=== PATIENT | male | born 1985 | race African-American/Black ===

== ENCOUNTER 2017-05-02 08:01 | Emergency (ER) | payer OTHER ==
[2017-05-02 08:07] VITALS: BP 115/84; PULSE 77; TEMP 98.5; BMI 20.3
--- NOTE | 2017-05-02 08:34 | PDOC ---
History of Present Illness - General Chief Complaint: Rash Stated Complaint: ALLERGIC REACTION Time Seen by Provider: 05/02/17 08:20 History Source: Patient Exam Limitations: No Limitations - History of Present Illness Initial Comments: 05/02/17 08:56 32 yr male with c/o rash to right index finger and thumb and left thumb for 2-3 weeks. Pt denies trauma. Pt states he uses dice alot during gambling games. Pt has no medical history, no history of eczema or psoriasis. no fever. Pt states the area is slightly itchy no pain . Severity: Yes: mild Location: reports: hands Respiratory Risk Factors: reports: no cause identified Past History - Past Medical History Allergies/Adverse Reactions: Allergies Allergy/AdvReac Type Severity Reaction Status Date / Time No Known Allergies Allergy Verified 05/02/17 08:04 Home Medications: Ambulatory Orders Hydrocortisone 1% Cream [Hytone 1% Cream -] 1 applic TP TID #1 tube 05/02/17 Other medical history: none - Psycho/Social/Smoking Cessation Hx Anxiety: No Suicidal Ideation: No Smoking History: Current some day smoker Have you smoked in the past 12 months: Yes Number of Cigarettes Smoked Daily: 5 Information on smoking cessation initiated: Yes 'Breaking Loose' booklet given: 05/02/17 Hx Alcohol Use: No Drug/Substance Use Hx: No Substance Use Type: Alcohol Review of Systems - Review of Systems Able to Perform ROS?: Yes Is the patient limited German proficient: No Constitutional: No: Symptoms Reported HEENTM: No: Symptoms Reported Respiratory: No: Symptoms reported Cardiac (ROS): No: Symptoms Reported ABD/GI: No: Symptoms Reported : No: Symptoms Reported Musculoskeletal: No: Symptoms Reported Integumentary: Yes: Symptoms Reported, See HPI *Physical Exam - Vital Signs Last Vital Signs Temp Pulse Resp BP Pulse Ox 98.5 F 77 18 115/84 100 05/02/17 08:05 05/02/17 08:05 05/02/17 08:05 05/02/17 08:05 05/02/17 08:05 - Physical Exam General Appearance: Yes: Nourished, Appropriately Dressed HEENT: positive: EOMI, IKE Neck: negative: Tender Respiratory/Chest: positive: Lungs Clear, Normal Breath Sounds Cardiovascular: positive: Regular Rhythm, Regular Rate Musculoskeletal: positive: Normal Inspection Extremity: positive: Normal Capillary Refill, Normal Inspection, Normal Range of Motion Integumentary: positive: Rash (right thumb, index finger with scaly, peeling rash no redness or drainage, mild pustules to the fingers and left hand mild pustules to the fingers, scaly dry , no swelling) Neurologic: positive: Fully Oriented, Alert, Normal Mood/Affect, Normal Response , Motor Strength 5/5 *DC/Admit/Observation/Transfer Diagnosis at time of Disposition: Contact dermatitis Qualifiers: Contact dermatitis type: irritant Contact dermatitis trigger: unspecified trigger Qualified Code(s): L24.9 - Irritant contact dermatitis, unspecified cause - Discharge Dispostion Disposition: HOME Condition at time of disposition: Good - Prescriptions Prescriptions: Hydrocortisone 1% Cream [Hytone 1% Cream -] 1 applic TP TID #1 tube - Referrals Referrals: Josh Song MD [Primary Care Provider] - Naty Yang MD [Staff Physician] - - Patient Instructions Additional Instructions: wash hands in cool water only not hot apply the prescription ointment as directed to the affected areas follow with the salvager if symptoms worsen or do not improve
== END 2017-05-02 08:38 | disposition home or self-care (01) ==
LOC: JERFT 08:01
DX: L24.9 Irritant contact dermatitis, unspecified cause (principal)
CPT/HCPCS: 99281-25

== ENCOUNTER 2017-05-13 05:17 | Emergency (ER) | payer OTHER ==
[2017-05-13] MEDS ORDERED: NALOXONE HCL 0.4 MG/ML VIAL IM ONE (05:22)
[2017-05-13] MEDS ORDERED: NALOXONE HCL 0.4 MG/ML VIAL ONE ×2 (05:28→06:07)
[2017-05-13 05:46] LABS: BASOPHIL 0.7 % (0-2.0); EOSINOPHIL 1.9 % (0-4.5); MCH 32.3 pg (25.7-33.7); MCHC 34.4 g/dl (32.0-35.9); MEAN CELL VOLUME 94.1 fl (80-96); MEAN PLT VOLUME 7.8 fl (7.5-11.1); NEUTROPHILS 74.5 % (42.8-82.8); PLATELET COUNT 244 K/MM3 (134-434); RDW 13.7 % (11.9-15.9); WHITE BLOOD COUNT 10.5 K/mm3 (4.0-10.0)
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
[2017-05-13] MEDS ORDERED: NALOXONE HCL 0.4 MG/ML VIAL IVPUSH ONE (06:06)
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
[2017-05-13 06:15] LABS: ALBUMIN 4.1 g/dl (3.4-5.0); ANION GAP 13 (8-16); BILIRUBIN,TOTAL 0.3 mg/dL (0.2-1.0); CALCIUM 8.7 mg/dL (8.5-10.1); CO2 24 mmol/L (21-32); CREATININE 0.8 mg/dL (0.7-1.3); GLUCOSE,RANDOM 92 mg/dL (74-106); SGOT/AST 98 U/L (15-37); SGPT/ALT 155 U/L (12-78); TOT PROT 7.4 g/dl (6.4-8.2)
[2017-05-13 06:18] LABS: ALK PHOS 58 U/L (45-117)
[2017-05-13 06:47] VITALS: BMI 24.3
[2017-05-13 07:29] VITALS: BP 116/85; PULSE 72; TEMP 98.6
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
== END 2017-05-13 08:20 | disposition home or self-care (01) ==
LOC: JER 05:17
PROC: 0JQ10ZZ Repair Face Subcutaneous Tissue and Fascia, Open Approach (ICD-10-PCS; principal; 2017-05-13)
PROC: 3E0233Z Introduction of Anti-inflammatory into Muscle, Percutaneous Approach (ICD-10-PCS; 2017-05-13)
PROC: 3E033GC Introduction of Other Therapeutic Substance into Peripheral Vein, Percutaneous Approach (ICD-10-PCS; 2017-05-13)
DX: S09.8XXA Other specified injuries of head, initial encounter (principal); S01.81XA Laceration without foreign body of other part of head, initial encounter; F10.120 Alcohol abuse with intoxication, uncomplicated; F12.10 Cannabis abuse, uncomplicated; Y90.8 Blood alcohol level of 240 mg/100 ml or more; F17.210 Nicotine dependence, cigarettes, uncomplicated
CPT/HCPCS: 12013; 12013-25; 36415; 70450-TC; 72125-TC; 80053; 80307; 85025; 96372; 96374; 99284-25

== ENCOUNTER 2018-08-07 14:29 | Emergency (ER) | payer OTHER ==
[2018-08-07 14:40] VITALS: BP 109/95; PULSE 96; TEMP 98.8; BMI 22.6
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
[2018-08-07 15:20] LABS: BASO % 1.2 % (0-2.0); EOS % 2.2 % (0-4.5); HEMATOCRIT 44.9 % (35.4-49); HEMOGLOBIN 15.9 GM/dL (11.7-16.9); LYMPH % 28.7 % (8-40); MCH 32.4 pg (25.7-33.7); MCHC 35.4 g/dl (32.0-35.9); MEAN CELL VOLUME 91.7 fl (80-96); MONO % 7.3 % (3.8-10.2); NEUT % 60.6 % (42.8-82.8); PLATELET COUNT 282 K/MM3 (134-434); RBC 4.89 M/mm3 (4.00-5.60); RDW 13.6 % (11.9-15.9); WHITE BLOOD COUNT 8.1 K/mm3 (4.0-10.0)
[2018-08-07 15:55] LABS: ALBUMIN 4.3 g/dl (3.4-5.0); ALK PHOS 69 U/L (45-117); ANION GAP 9 MMOL/L (8-16); BILIRUBIN,TOTAL 0.3 mg/dL (0.2-1); BLOOD UREA NITROGEN 7 mg/dL (7-18); CALCIUM 8.8 mg/dL (8.5-10.1); CHLORIDE 103 mmol/L (98-107); CO2 28 mmol/L (21-32); GLUCOSE,RANDOM 112 mg/dL (74-106); SGOT/AST 50 U/L (15-37); SGPT/ALT 40 U/L (13-61); SODIUM 139 mmol/L (136-145)
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
== END 2018-08-07 20:38 ==
LOC: JER 14:29
DX: Z04.1 Encounter for examination and observation following transport accident (principal); V47.5XXA Car driver injured in collision with fixed or stationary object in traffic accident, initial encounter; Y93.89 Activity, other specified; Y92.410 Unspecified street and highway as the place of occurrence of the external cause
CPT/HCPCS: 36415; 70450-TC; 71260-TC; 72125-TC; 73030-TC-RT-FY; 74177-TC; 80053; 80307; 85025; 99281-25

== ENCOUNTER 2018-10-23 12:31 | Emergency (ER) | payer OTHER ==
[2018-10-23 12:58] VITALS: TEMP 99.1; BMI 25.0
[2018-10-23] MEDS ORDERED: SODIUM CHLORIDE 1,000 ML IV STA (13:42)
[2018-10-23] MEDS ORDERED: PANTOPRAZOLE SODIUM 40 MG in SODIUM CHLORIDE 100 ML IVPB ONE (13:42)
[2018-10-23] MEDS ORDERED: ACETAMINOPHEN 1000 MG/100 ML VIAL (NON FORMULARY) IVPB ONE (13:42)
--- NOTE | 2018-10-23 13:57 | PDOC ---
History of Present Illness - General Chief Complaint: Pain, Acute Stated Complaint: SENT BY PCP Time Seen by Provider: 10/23/18 13:29 - History of Present Illness Initial Comments: 10/23/18 14:13 The patient is a 33-year-old male, with h/o ETOH abuse, who presents to the ED for evaluation of 4-5 days of RUQ pain. The patient states that the pain is intermittent, 7/10 in severity, nonradiating, no association with food but possibly exacerbated with alcohol consumption. Denies any nausea or vomiting. He reports experiencing this pain in the past, but states that it resolved on its own. Patients appetite is normal. The patient denies any fever, chills, diarrhea, or constipation. Denies chest pain or shortness of breath. Denies any recent sick contacts. Allergies: NKA Social History: Reports alcohol use. Surgical History: None reported. Past History - Past Medical History Allergies/Adverse Reactions: Allergies Allergy/AdvReac Type Severity Reaction Status Date / Time No Known Allergies Allergy Verified 10/23/18 13:25 Home Medications: Ambulatory Orders Esomeprazole Magnesium [Nexium 24Hr] 20 mg PO DAILY #30 capsule. 10/23/18 COPD: No - Suicide/Smoking/Psychosocial Hx Smoking History: Current some day smoker Have you smoked in the past 12 months: Yes Number of Cigarettes Smoked Daily: 5 Information on smoking cessation initiated: No 'Breaking Loose' booklet given: 05/02/17 Hx Alcohol Use: Yes (almost daily) Drug/Substance Use Hx: No Substance Use Type: Alcohol, Marijuana Review of Systems - Review of Systems Comments:: 10/23/18 13:50 "GENERAL/CONSTITUTIONAL: No fever or chills. No weakness. HEAD, EYES, EARS, NOSE AND THROAT: No change in vision. No ear pain or discharge. No sore throat. CARDIOVASCULAR: No chest pain, no shortness of breath, no loss of consciousness RESPIRATORY: No cough, wheezing, or hemoptysis. GASTROINTESTINAL: + abdominal pain, No nausea, vomiting, diarrhea or constipation. GENITOURINARY: No dysuria, frequency, or change in urination. MUSCULOSKELETAL: No joint or muscle swelling or pain. No neck or back pain. SKIN: No rash NEUROLOGIC: No vertigo, no change in strength/sensation. ENDOCRINE: No increased thirst. No abnormal weight change. HEMATOLOGIC/LYMPHATIC: No anemia, easy bleeding, or history of blood clots. ALLERGIC/IMMUNOLOGIC: No hives or skin allergy. *Physical Exam - Vital Signs Last Vital Signs Temp Pulse Resp BP Pulse Ox 99.1 F 83 20 120/72 99 10/23/18 12:54 10/23/18 12:54 10/23/18 12:54 10/23/18 12:54 10/23/18 12:54 - Physical Exam Comments: 10/23/18 13:52 GENERAL: Awake, alert, and fully oriented, in no acute distress. HEAD: No signs of trauma EYES: PERRLA, EOMI, sclera anicteric, conjunctiva clear ENT: Auricles normal inspection, hearing grossly normal, nares patent, oropharynx clear without exudates. Moist mucosa NECK: Nontender, no stepoffs, Normal ROM, supple, no lymphadenopathy, JVD, or masses LUNGS: Breath sounds equal, clear to auscultation bilaterally. No wheezes, and no crackles HEART: Regular rate and rhythm, normal S1 and S2, no murmurs, rubs or gallops ABDOMEN: + RUQ tenderness, + garcia's EXTREMITIES: Normal range of motion, no edema. No clubbing or cyanosis. No cords, erythema, or tenderness NEUROLOGICAL: Cranial nerves II through XII intact. 5/5 strength and sensation in all extremities, Normal speech, normal gait, normal cerebellar function SKIN: Warm, Dry, normal turgor, no rashes or lesions noted. Moderate Sedation - Procedure Monitoring Vital Signs: Procedure Monitoring Vital Signs Temperature 99.1 F 10/23/18 12:54 Pulse Rate 83 10/23/18 12:54 Respiratory Rate 20 10/23/18 12:54 Blood Pressure 120/72 10/23/18 12:54 O2 Sat by Pulse Oximetry (%) 99 10/23/18 12:54 ED Treatment Course - LABORATORY CBC & Chemistry Diagram: 10/23/18 14:15 10/23/18 14:15 - RADIOLOGY Radiology Studies Ordered: Category Date Time Status ABDOMEN US -LIMITED [US] Stat Ultrasound 10/23/18 13:42 Ordered Medical Decision Making - Medical Decision Making 10/23/18 13:57 33 M with h/o ETOH abuse presenting with RUQ pain x several days. Acute pradeep vs gastritis vs PUD vs pancreatitis. Less likely is appy as pt without RLQ tenderness. - Labs, lipase - RUQ sono - IVF, GI cocktail 10/23/18 17:00 Labs notable for mildly elevated lipase RUQ sono unremarkable Pt reassessed - notes improvement in pain with GI meds Will PO trial 10/23/18 17:13 Pt tolerated PO without issue Repeat abdominal exam benign. Pt is well appearing, with normal vitals. Clinically stable for DC at this time. I discussed the physical exam findings, ancillary test results and final diagnoses with the patient. I answered all of the patient's questions. The patient was satisfied with the care received and felt comfortable with the discharge plan and treatment plan. The patient agrees to follow up with the primary care physician within 24-72 hours. *DC/Admit/Observation/Transfer Diagnosis at time of Disposition: Gastritis - Discharge Dispostion Disposition: HOME - Prescriptions Prescriptions: Esomeprazole Magnesium [Nexium 24Hr] 20 mg PO DAILY #30 capsule.dr - Referrals Referrals: Nelida Horta MD [Primary Care Provider] - Michael Hill MD [Staff Physician] - - Patient Instructions Printed Discharge Instructions: DI for Alcoholic Gastritis Additional Instructions: Avoid any spicy or heavy foods or alcoholic drinks until your pain has resolved. Take the nexium every day as prescribed. If you experience worsening pain, vomiting, fevers, or any other concerning symptoms, return to the ER immediately. Follow up with a GI doctor within 1 week for further evaluation of your pain. You may need an endoscopy. - Post Discharge Activity - Attestations Physician Attestion: 10/23/18 17:03 I, Dr. Juan Carlos Deluna MD, attest that this document has been prepared under my direction and personally reviewed by me in its entirety. I further attest, that it accurately reflects all work, treatment, procedures and medical decision -making performed by me.
[2018-10-23] MEDS ORDERED: PANTOPRAZOLE SODIUM 40 MG/100 ML BAG IVPB ONE (14:10)
[2018-10-23] MEDS ORDERED: ACETAMINOPHEN INJECTION 100 ML IVPB ONE (14:10)
[2018-10-23 14:35] LABS: BASO % 0.7 % (0-2.0); EOS % 2.1 % (0-4.5); HEMATOCRIT 46.5 % (35.4-49); HEMOGLOBIN 16.2 GM/dL (11.7-16.9); LYMPH % 21.9 % (8-40); MCH 32.6 pg (25.7-33.7); MCHC 34.8 g/dl (32.0-35.9); MEAN CELL VOLUME 93.7 fl (80-96); MEAN PLT VOLUME 7.3 fl (7.5-11.1); MONO % 8.6 % (3.8-10.2); NEUT % 66.7 % (42.8-82.8); PLATELET COUNT 290 K/MM3 (134-434); RBC 4.96 M/mm3 (4.00-5.60); WHITE BLOOD COUNT 8.6 K/mm3 (4.0-10.0)
[2018-10-23 14:46] LABS: ALBUMIN 4.4 g/dl (3.4-5.0); ALK PHOS 75 U/L (45-117); ANION GAP 5 MMOL/L (8-16); BILIRUBIN,TOTAL 0.9 mg/dL (0.2-1); BLOOD UREA NITROGEN 11 mg/dL (7-18); CHLORIDE 101 mmol/L (98-107); CO2 32 mmol/L (21-32); CREATININE 1.1 mg/dL (0.55-1.3); GLUCOSE,RANDOM 93 mg/dL (74-106); LIPASE 492 U/L (73-393); POTASSIUM 3.8 mmol/L (3.5-5.1); SGOT/AST 27 U/L (15-37); SGPT/ALT 30 U/L (13-61); SODIUM 138 mmol/L (136-145); TOT PROT 8.2 g/dl (6.4-8.2)
[2018-10-23 15:50] LABS: INR 1.12 (0.83-1.09); PROTHROMBIN TIME (PATIENT) 13.2 SEC (9.7-13.0)
[2018-10-23 17:30] VITALS: BP 121/77; PULSE 86
== END 2018-10-23 17:30 | disposition home or self-care (01) ==
LOC: JER 12:31
PROC: 3E0337Z Introduction of Electrolytic and Water Balance Substance into Peripheral Vein, Percutaneous Approach (ICD-10-PCS; principal; 2018-10-23)
PROC: 3E033GC Introduction of Other Therapeutic Substance into Peripheral Vein, Percutaneous Approach (ICD-10-PCS; 2018-10-23)
PROC: 3E033NZ Introduction of Analgesics, Hypnotics, Sedatives into Peripheral Vein, Percutaneous Approach (ICD-10-PCS; 2018-10-23)
DX: K29.70 Gastritis, unspecified, without bleeding (principal); F10.10 Alcohol abuse, uncomplicated
CPT/HCPCS: 36415; 76705-TC; 80053; 83690; 85025; 85610; 85730; 86850; 86900; 86901; 96361; 96365; 96375; 99283-25; J0131; J7030